=== PATIENT | male | born 1975 | race Two or more races ===

== ENCOUNTER 2016-08-26 13:26 | Emergency (ER) | payer MEDICAID ==
[2016-08-26] MEDS ORDERED: IOPAMIDOL 370 (76%) 100 ML VIAL IV ONE (13:27)
[2016-08-26 14:30] LABS: URINE APPEARANCE CLEAR; URINE BILIRUBIN NEGATIVE (NEGATIVE); URINE BLOOD NEGATIVE (NEGATIVE); URINE COLOR YELLOW; URINE GLUCOSE (UA) NEGATIVE (NEGATIVE); URINE LEUKOCYTE ESTERASE NEGATIVE (NEGATIVE); URINE NITRITE NEGATIVE (NEGATIVE); URINE PROTEIN NEGATIVE (NEGATIVE); URINE UROBILINOGEN NORMAL (0-1 mg/dl)
[2016-08-26 14:31] LABS: ABSOLUTE NEUTROPHIL COUNT 9.1 K/mm3 (1.8-7.7); BASO % 0.2 % (0.2-1.0); EOS # 0.1 (0.0-0.5); EOS % 0.4 % (0.9-2.9); HEMOGLOBIN 14.3 gm/l (14.0-18.0); IMM NEUT # 0.1 K/mm3 (0-0.2); IMM NEUT% 0.4 % (0-1); LYMPH # 1.8 (1.0-4.8); LYMPH % 14.4 % (15-45); MEAN CELL VOLUME 87.6 fl (80.0-94.0); MEAN CORPUSCULAR HEMOGLOBIN 28.5 pg (27.0-31.0); MEAN CORPUSCULAR HGB CONC 32.5 g/dl (33.0-37.0); MEAN PLATELET VOLUME 9.5 fl (7.4-10.4); MONO # 1.4 (0.0-0.8); MONO % 11.4 % (4-12); NEUT % 73.2 % (43-75); PLATELET COUNT 301 K/mm3 (130-400); RED CELL DISTRIBUTION WIDTH 12.2 % (11.5-14.5)
[2016-08-26 14:45] LABS: ALB/GLOB RATIO 1.5 (>1.0); ALBUMIN 4.7 gm/dL (3.5-5.7); CALCIUM 9.6 mg/dL (8.6-10.3)
--- NOTE | 2016-08-26 15:47 | CT ---
Exam Type: ABD/PELVIS W/ CON Date and Time: 08/26/2016 2:55 PM Clinical information: Right lower quadrant pain. Elevated white cell count. Comparison: None Technique: Contiguous axial 4 mm images were obtained from the lung bases through the pelvis after the uneventful IV administration of 100 cc of [id number]. Sagittal and coronal reformations with high resolution lung algorithm images were also obtained at this time. CT DI: 12.8 DLP 722.6 FINDINGS: Lung base :No abnormality is identified at the lung bases. Visualized heart:There is no pericardial effusion. LIVER: within normal limits. BILE DUCTS: normal caliber. GALLBLADDER: No calcified gallstones. Normal caliber wall. PANCREAS: within normal limits. SPLEEN: within normal limits. ADRENALS: within normal limits. KIDNEYS: within normal limits. Stomach and small BOWEL: Normal caliber. Large bowel: Air and stool are noted within the large bowel. Appendix is not visualized though secondary signs of appendicitis are not seen. Short segment of diverticulitis is noted involving the sigmoid colon measuring approximately 6.1 cm on coronal image 34. No evidence of abscess or free air. LYMPH NODES: No enlarged mesenteric lymph nodes. PERITONEUM: no ascites or free air, no fluid collection. VESSELS: within normal limits RETROPERITONEUM: within normal limits. ABDOMINAL WALL: within normal limits. Bladder: There is thickening of the superior aspect of the bladder secondary to the adjacent inflammatory process from the diverticular disease. BONES: within normal limits. IMPRESSION: Simple diverticulitis without abscess or free air. Other incidental findings as above. Findings were called to Dr. Lozano at approximately 1542 hours on 08/26/2016.
[2016-08-26] MEDS ORDERED: KETOROLAC TROMETHAMINE 30 MG/ML 1 ML VIAL ONE (15:57)
[2016-08-26] MEDS ORDERED: METRONIDAZOLE 500 MG TABLET ONE (15:58)
[2016-08-26] MEDS ORDERED: LEVOFLOXACIN 250 MG TABLET ONE (15:58)
== END 2016-08-26 16:15 | disposition home or self-care (01) ==
LOC: ED 13:26
DX: K57.92 Diverticulitis of intestine, part unspecified, without perforation or abscess without bleeding (principal); F17.210 Nicotine dependence, cigarettes, uncomplicated
CPT/HCPCS: 83690; 85025; 80053; 81003; 74177; 99283; 96374; 99284; A9270 ×2; J1885; Q9967